=== PATIENT | male | born 1945 | race Two or more races ===

== ENCOUNTER 2023-02-15 17:16 | Emergency (ER) | payer OTHER ==
[~2023-02-15] VITALS: Ht 177.8 cm; Wt 95.3 kg
[2023-02-15] MEDS ORDERED: REGLAN5 MG/5 ML PO (17:23)
[2023-02-15] MEDS ORDERED: PERCOCET 5-3251 EACH (17:24)
[2023-02-15] MEDS ORDERED: [UNRECOGNIZED DRUG - REMARK] (17:24)
[2023-02-15] MEDS ORDERED: DICLOFENAC-MIS1 EAC1 (17:24)
[2023-02-15] MEDS ORDERED: BENICAR20 MG (17:25)
[2023-02-15] MEDS ORDERED: TAMS0.4C PO (17:25)
[2023-02-15] MEDS ORDERED: PRILOSEC OTC20 MG (17:26)
[2023-02-15] MEDS ORDERED: DUI500 PO (18:32)
[2023-02-15] MEDS ORDERED: MUPIROCIN15 GM TOP (18:32)
== END 2023-02-15 18:34 | disposition home or self-care (01) ==
LOC: ER 17:16
DX: S51.822A Laceration with foreign body of left forearm, initial encounter (principal); W18.39XA Other fall on same level, initial encounter; Y93.89 Activity, other specified; Y92.59 Other trade areas as the place of occurrence of the external cause